=== PATIENT | female | born 1975 | race African-American/Black ===

== ENCOUNTER 2016-09-09 18:25 | Emergency (ER) | payer BC ==
[~2016-09-09] VITALS: Ht 149.9 cm; Wt 65.8 kg
[~2016-09-09 18:25] MED LIST: PROAIR HFA8.5 GM INH
[2016-09-09 21:10] VITALS: BP 171/113
[2016-09-09 23:34] LABS: BILIRUBIN,URINE NEGATIVE (NEG); GLUCOSE,URINE NEGATIVE (NEG); NITRITE,URINE NEGATIVE (NEG); PH,URINE 7.5; PROTEIN,URINE 30 mg/dL (NEG-TRACE); UROBILINOGEN,URINE 0.2 mg/dL (0.2 mg/dL)
[2016-09-09 23:44] LABS: BACTERIA,URINE FEW /HPF (0-FEW); RBC,URINE TNTC /HPF (0-2)
[2016-09-10] MEDS ORDERED: PHEN-318 PO (00:36)
[2016-09-10] MEDS ORDERED: CEPH-264 PO (00:36)
--- NOTE | 2016-09-10 00:37 | PHYS DOC ---
Past Medical History Past Medical History: Hypertension Past Surgical History: Appendectomy, Hysterectomy Alcohol Use: None Drug Use: None Adult General Chief Complaint Chief Complaint: VAGINAL BLEEDING HPI HPI Patient is a 41 year old female who presents to the ER today complaining of dysuria frequency and urgency and concern was possibility of vaginal bleeding. Patient reports after she urinates she wakes herself she notices some blood on the toilet paper. Patient denies any fevers shaking chills. Patient has any nausea vomiting diarrhea. Patient denies any abdominal pain chest pain shortness of breath. Patient reports she's never had a urinary tract infection the past. Patient denies any history of kidney stones. Patient reports that she has had a total abdominal hysterectomy back in 2011. Patient's physical exam was unremarkable except for a normal pelvic exam. Patient no vaginal bleeding. Cultures were obtained and sent. Patient mild tenderness to palpation over her suprapubic region. Patient's abdomen was soft nontender no rebound or guarding. Patient not have any symptoms of be consistent with an acute surgical abdomen. Patient had no flank tenderness to palpation. HCR presentation is consistent with urinary tract infection/cystitis. Patient will be given Keflex and Pyridium to assist her with her discomfort. Cultures will be sent. Review of Systems Review of Systems Constitutional: Denies fever or chills [] Eyes: Denies change in visual acuity, redness, or eye pain [] All other review of systems are negative except as documented in the history of present illness portion. Allergies Allergies Allergies Coded Allergies Type Severity Reaction Last Updated Verified No Known Drug Allergies 09/29/15 No Physical Exam Physical Exam Constitutional: Well developed, well nourished, no acute distress, non-toxic appearance. [] HENT: Normocephalic, atraumatic, bilateral external ears normal, oropharynx moist, no oral exudates, nose normal. [] Eyes: PERRLA, EOMI, conjunctiva normal, no discharge. [] Neck: Normal range of motion, no tenderness, supple, no stridor. [] Cardiovascular:Heart rate regular rhythm, no murmur [] Lungs & Thorax: Bilateral breath sounds clear to auscultation [] Abdomen: Bowel sounds normal, soft, no tenderness, no masses, no pulsatile masses. [] Skin: Warm, dry, no erythema, no rash. [] Back: No tenderness, no CVA tenderness. [] Extremities: No tenderness, no cyanosis, no clubbing, ROM intact, no edema. [] Neurologic: Alert and oriented X 3, normal motor function, normal sensory function, no focal deficits noted. [] Psychologic: Affect normal, judgement normal, mood normal. [] Current Patient Data Vital Signs Vital Signs Date Time Temp Pulse Resp B/P Pulse Ox O2 Delivery O2 Flow Rate FiO2 09/09/16 21:10 97.7 71 20 171/113 99 Room Air 97.7 Lab Values Laboratory Tests Test 09/09/16 21:05 Urine Collection Type Unknown Urine Color Yellow Urine Clarity Clear Urine pH 7.5 Urine Specific [employer] [place] <=1.005 Urine Protein 30mg/dL (NEG-TRACE) Urine Glucose (UA) Negativemg/dL (NEG) Urine Ketones (Stick) Negativemg/dL (NEG) Urine Blood Large (NEG) Urine Nitrite Negative (NEG) Urine Bilirubin Negative (NEG) Urine Urobilinogen Dipstick 0.2mg/dL (0.2 mg/dL) Urine Leukocyte Esterase Large (NEG) Urine RBC Tntc/HPF (0-2) Urine WBC 11-20/HPF (0-4) Urine Bacteria Few/HPF (0-FEW) EKG EKG [] Radiology/Procedures Radiology/Procedures [] Course & Med Decision Making Course & Med Decision Making Pertinent Labs and Imaging studies reviewed. (See chart for details) [] Dragon Disclaimer Dragon Disclaimer This electronic medical record was generated, in whole or in part, using a voice recognition dictation system. Departure Departure Impression: Primary Impression: Urinary tract infection Additional Impressions: Cystitis Hematuria Disposition: 01 HOME, SELF-CARE Condition: IMPROVED Referrals: CHRISTINA THURMAN MD (PCP) Patient Instructions: Hematuria, Adult, Urinary Tract Infection Scripts Phenazopyridine Hcl (Pyridium)200 Mg [id number] Mg PO TID #9 TAB Prov:EMILIANO ZAMUDIO MD 09/10/16 Cephalexin (Keflex)500 Mg Ipyntat703 Mg PO QID 10 Days Prov:EMILIANO ZAMUDIO MD 09/10/16 Problem Qualifiers EMILIANO ZAMUDIO MD Sep 10, 2016 00:37
[2016-09-10] MEDS ORDERED: PHENAZOPYRIDINE 200 MG TABLET. PO ONE (01:00)
[2016-09-10] MEDS ORDERED: CEPHALEXIN 250 MG CAPSULE PO ONE (01:00)
== END 2016-09-10 01:06 | disposition home or self-care (01) ==
LOC: ER 18:25
DX: N30.91 Cystitis, unspecified with hematuria (principal); I10 Essential (primary) hypertension; Z90.49 Acquired absence of other specified parts of digestive tract; Z90.710 Acquired absence of both cervix and uterus
CPT/HCPCS: 81001; 87086; 87491; 87591; 99284; Q0111